=== PATIENT | female | born 1980 | race Caucasian/White ===

== ENCOUNTER 2024-09-25 23:55 | Emergency (ER) | payer MEDICAID ==
[~2024-09-25] VITALS: Ht 172.7 cm; Wt 72.6 kg
[2024-09-25 23:57] VITALS: O2SAT 99
[2024-09-26 00:09] VITALS: BP 110/68; PULSE 67; RESP 16; TEMP 36.5
[2024-09-26] MEDS ORDERED: IBUP-2029 MT (00:43)
== END 2024-09-26 01:07 | disposition home or self-care (01) ==
LOC: ER 23:55
DX: S16.1XXA Strain of muscle, fascia and tendon at neck level, initial encounter (principal); S39.012A Strain of muscle, fascia and tendon of lower back, initial encounter; V43.52XA Car driver injured in collision with other type car in traffic accident, initial encounter; Y93.89 Activity, other specified; Y92.410 Unspecified street and highway as the place of occurrence of the external cause; Y99.9 Unspecified external cause status
CPT/HCPCS: 99282